=== PATIENT | male | born 1990 | race Caucasian/White ===

== ENCOUNTER 2019-02-12 10:12 | Emergency (ER) | payer OTHER ==
--- NOTE | 2019-02-12 11:05 | XRAY Report ---
Reason: cough/ Soa Procedure Date: 02/12/2019 Accession Number: [id number] / [id number] Procedure: XR - Chest 2 View X-Ray CPT Code: 61988 FULL RESULT: EXAM: CHEST RADIOGRAPHY EXAM DATE: 02/12/2019 10:42 AM. CLINICAL HISTORY: Cough/ Soa. COMPARISON: None. TECHNIQUE: 2 views. FINDINGS: Lungs/Pleura: No focal opacities evident. No pleural effusion. No pneumothorax. Normal volumes. Mediastinum: Heart and mediastinal contours are unremarkable. Other: None. IMPRESSION: Negative 2-view chest radiography. [facility]IA
[2019-02-12] MEDS ORDERED: ALBUTEROL NEB 2.5 MG/3 ML INH STA (11:22)
--- NOTE | 2019-02-12 11:46 | ED Physician Documentation ---
History of Present Illness - Stated complaint Stated Complaint: COUGH - Chief complaint Chief Complaint: Resp - History obtained from History obtained from: Patient - History of Present Illness Pain level max: 0 Pain level now: 0 - Additonal information Additional information: 28-year-old male works at [employer]. States has had rhinorrhea and congestion for the past several days. Today had a hard time breathing while at work. Currently feeling better. Had coughing today as well. Quit smoking 6 months ago. No fevers. Dry cough. Nothing makes it better or worse Review of Systems Constitutional: denies: Fever, Chills Nose: reports: Rhinorrhea / runny nose, Congestion Throat: denies: Sore throat Cardiac: denies: Chest pain / pressure Respiratory: reports: Cough GI: denies: Abdominal Pain, Nausea, Vomiting, Diarrhea : denies: Dysuria Skin: denies: Rash Musculoskeletal: denies: Neck pain, Back pain Neurologic: denies: Headache PD PAST MEDICAL HISTORY - Past Medical History Past Medical History: No Cardiovascular: None Respiratory: None Neuro: None Endocrine/Autoimmune: None GI: None : None HEENT: None Psych: None Musculoskeletal: None Derm: None - Past Surgical History Past Surgical History: No - Present Medications Home Medications: Ambulatory Orders Medication Instructions Recorded Confirmed Albuterol Sulf [Ventolin Hfa 1 - 2 puffs INH Q4HR PRN #1 inhaler 02/12/19 Inhaler] - Allergies Allergies/Adverse Reactions: Allergies Allergy/AdvReac Type Severity Reaction Status Date / Time No Known Drug Allergies Allergy Verified 02/12/19 10:23 - Social History Does the pt smoke?: No Smoking Status: Former smoker - Immunizations Immunizations are current?: Yes PD ED PE NORMAL - Vitals Vital signs reviewed: Yes - General General: Alert and oriented X 3, No acute distress - HEENT HEENT: Ears normal, Moist mucous membranes, Pharynx benign - Neck Neck: Supple, no meningeal sign, No adenopathy - Cardiac Cardiac: RRR, Strong equal pulses - Respiratory Respiratory: No respiratory distress, Other (End expiratory wheeze bilaterally diminished breath sounds bilaterally) - Derm Derm: Warm and dry - Neuro Neuro: Alert and oriented X 3 - Psych Psych: Normal mood, Normal affect Results - Vitals Vitals: Oxygen O2 Source Room air - Rads (name of study) Chest x-ray Radiology: Prelim report reviewed, EMP read contemporaneously, See rad report (No acute disease) PD MEDICAL DECISION MAKING - ED course Complexity details: re-evaluated patient, considered differential, d/w patient ED course: Patient with what appears to be a viral upper respiratory infection. Symptoms resolved in the emergency department. Will prescribe an inhaler for home. Also may have had a component of anxiety today. Patient is well-appearing, nontoxic. Afebrile. No hypoxia. No respiratory distress. Patient counseled regarding signs and symptoms for which I believe and urgent re-evaluation would be necessary. Patient with good understanding of and agreement to plan and is comfortable going home at this time This document was made in part using voice recognition software. While efforts are made to proofread this document, sound alike and grammatical errors may occur. Departure - Departure Disposition: 01 Home, Self Care Clinical Impression: Viral URI, Anxiety reaction Condition: Good Instructions: ED Panic Attack, ED URI Viral Follow-Up: your,doctor in 1 week [Other] Prescriptions: Albuterol Sulf [Ventolin Hfa Inhaler] 1 - 2 puffs INH Q4HR PRN #1 inhaler PRN Reason: Shortness Of Air/Wheezing Comments: Use the inhaler as needed for difficulty breathing. Make sure to use it with a spacer as this increases the amount of medication that makes it to your lungs. Return if you worsen. Discharge Date/Time: 02/12/19 13:10
[2019-02-12 13:19] VITALS: BP 130/82
== END 2019-02-12 13:10 | disposition home or self-care (01) ==
LOC: ED 10:12
DX: J06.9 Acute upper respiratory infection, unspecified (principal); F41.1 Generalized anxiety disorder; Z87.891 Personal history of nicotine dependence
CPT/HCPCS: 71046; 94640; 94664; 99283; 99284

== ENCOUNTER 2020-02-14 17:13 | Emergency (ER) | payer OTHER ==
[2020-02-14 17:19] VITALS: BP 144/110
[2020-02-14] MEDS ORDERED: oxyCODONE/ACET 5/325 Prepack 4 PO STA (17:23)
[2020-02-14] MEDS ORDERED: TETANUS/DIPHTHERIA/PERTUSSIS 0.5 ML SYRINGE IM ONE (17:23)
[2020-02-14] MEDS ORDERED: oxyCODONE 5 MG TABLET PO STA (17:23)
[2020-02-14] MEDS ORDERED: IBUPROFEN 800 MG TABLET PO STA (17:23)
[2020-02-14] MEDS ORDERED: BACITRACIN ZINC OINT 1 PACKET TOP STA (17:24)
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
[2020-02-14] MEDS ORDERED: LIDOCAINE JELLY 2% 6 ML JEL.PF.APP TOP STA (17:32)
== END 2020-02-14 17:45 | disposition home or self-care (01) ==
LOC: ED 17:13
DX: T23.232A Burn of second degree of multiple left fingers (nail), not including thumb, initial encounter (principal); X13.1XXA Other contact with steam and other hot vapors, initial encounter; Y93.G1 Activity, food preparation and clean up; Y92.000 Kitchen of unspecified non-institutional (private) residence as the place of occurrence of the external cause; Z87.891 Personal history of nicotine dependence
CPT/HCPCS: 90471; 90715; 99283; A9270

== ENCOUNTER 2023-03-28 10:14 | Outpatient (CLI) | payer OTHER ==
[2023-03-28 14:44] LABS: BASOPHILS # (AUTO) 0.1 10^3/uL (0.0-0.1); EOSINOPHILS # (AUTO) 0.1 10^3/uL (0.0-0.7); EOSINOPHILS % (AUTO) 1.2 %; HCT - HEMATOCRIT 47.2 % (42.0-52.0); LYMPHOCYTES # (AUTO) 1.3 10^3/uL (1.5-3.5); LYMPHOCYTES % (AUTO) 26.2 %; MEAN CORPUSCULAR HEMOGLOBIN 27.9 pg (27.0-31.0); MEAN CORPUSCULAR HGB CONC 31.8 g/dL (32.0-36.0); MEAN CORPUSCULAR VOLUME 87.7 fL (80.0-94.0); MEAN PLATELET VOLUME 10.1 fL (7.4-11.4); MONOCYTES # (AUTO) 0.4 10^3/uL (0.0-1.0); MONOCYTES % (AUTO) 7.6 %; NEUTROPHILS # (AUTO) 3.1 10^3/uL (1.5-6.6); NEUTROPHILS % (AUTO) 63.8 %; PLT - PLATELET COUNT 271 10^3/uL (130-450); RED BLOOD COUNT 5.38 10^6/uL (4.70-6.10); RED CELL DISTRIBUTION WIDTH 13.2 % (12.0-15.0); WHITE BLOOD COUNT 4.9 x10^3/uL (4.8-10.8)
[2023-03-28 15:25] LABS: THYROID STIMULATING HORMONE 1.42 uIU/mL (0.34-5.60)
[2023-03-28 15:29] LABS: ALBUMIN 4.7 g/dL (3.2-5.5); ALKALINE PHOSPHATASE 53 IU/L (42-121); ALT ALANINE AMINOTRANSFERASE 13 IU/L (10-60); AST ASPARTATE AMINOTRANSFERASE 12 IU/L (10-42); BILIRUBIN,TOTAL 0.4 mg/dL (0.2-1.0); BUN - BLOOD UREA NITROGEN 13 mg/dL (6-20); CALCIUM 9.9 mg/dL (8.5-10.3); CARBON DIOXIDE - CO2 29 mmol/L (21-32); CHLORIDE 105 mmol/L (101-111); CHOL/HDL RATIO 2.4 (<5.0); CHOLESTEROL 189 mg/dL; CREATININE 0.8 mg/dL (0.6-1.3); GFR - MDRD 111 (>89); GLUCOSE 96 mg/dL (74-104); HDL CHOLESTEROL 80 mg/dL; LDL CHOLESTEROL,CALCULATED 99 mg/dL; LDL/HDL RATIO 1.2 (<3.6); POTASSIUM 4.3 mmol/L (3.5-4.5); SODIUM 139 mmol/L (135-145); TOTAL PROTEIN 7.1 g/dL (6.4-8.9); TRIGLYCERIDES 49 mg/dL (48-352); VLDL CHOLESTEROL 10 mg/dL
== END 2023-03-28 10:15 | disposition home or self-care (01) ==
LOC: LAB.S 10:14
PROVIDERS: ATTEND Nurse Practitioner
DX: F32.A Depression, unspecified (principal)
CPT/HCPCS: 36415; 80053; 80061; 83721; 84443; 85025

== ENCOUNTER 2023-08-28 12:44 | Outpatient (CLI) | payer OTHER ==
--- NOTE | 2023-08-28 13:24 | XRAY Report ---
PROCEDURE: Knee 3V LT INDICATIONS: LEFT KNEE PAIN TECHNIQUE: 3 views of the knee(s) were acquired. COMPARISON: 11/06/2011 FINDINGS: Bones: No fractures or dislocations. No suspicious bony lesions. Tricompartmental joint space narro wing with associated osteophytosis. Soft tissues: Moderate knee joint effusion. No suspicious soft tissue calcifications or masses. IMPRESSION: No acute bony abnormality. Moderate knee joint effusion. Internal derangement not excluded. Mild to moderate tricompartmental osteoarthritis. Kellgren-Antonino scale of osteoarthritis: 2. Reviewed by: Raymundo Mason MD on 08/28/2023 1:23 PM PDT Approved by: Raymundo Mason MD on 08/28/2023 1:23 PM PDT Station ID: [id number]
--- NOTE | 2023-08-28 19:50 | XRAY Report ---
PROCEDURE: Lumbar Spine 2-3V INDICATIONS: CHRONIC LUMBAR BACK PAIN TECHNIQUE: 3 view(s) of the lumbar spine were acquired. COMPARISON: None. FINDINGS: Bones: Vertebral body height and alignment is maintained. No suspicious bony lesions. Soft tissues: Overlying bowel gas pattern is normal. No suspicious soft tissue calcifications. Lar ge amount of fecal debris IMPRESSION: Unremarkable lumbar spine radiographs. Incidental large amount of fecal debris Reviewed by: Dick Mercado MD on 08/28/2023 6:49 PM AKDT Approved by: Dick Mercado MD on 08/28/2023 6:49 PM AKDT Station ID: [id number]
== END 2023-08-28 12:45 | disposition home or self-care (01) ==
LOC: DI.S 12:44
PROVIDERS: ATTEND Physician Assistant Medical
DX: M54.50 Low back pain, unspecified (principal); G89.29 Other chronic pain; M25.462 Effusion, left knee; M17.12 Unilateral primary osteoarthritis, left knee

== ENCOUNTER 2023-09-14 07:16 | Outpatient (CLI) | payer OTHER ==
--- NOTE | 2023-09-17 18:11 | MRI Report ---
PROCEDURE: Knee LT WO INDICATIONS: L KNEE JOINT TECHNIQUE: Noncontrast sagittal PD fast spin echo and T2 fast spin echo with fat saturation, sagittal 3-D gradie nt sequence with fat saturation; coronal T1 spin echo and PD fast spin echo with fat saturation, and axial PD fast spin echo with fat saturation through the knee. COMPARISON: X-ray left knee, 08/28/2023. MRI left knee report, 11/22/2011; images are not available. FINDINGS: Image quality: Excellent. Menisci: The medial and lateral menisci demonstrate normal morphology and internal signal. The meni scal root ligaments appear intact. Cruciate ligaments: The anterior and posterior cruciate ligaments appear intact. Medial structures: The medial collateral ligament appears intact. The semimembranosus tendon insert ions and meniscocapsular junction appear intact. Visualized portions of the pes anserinus tendons ap pear normal. No abnormal bursal fluid. Lateral structures: The lateral collateral ligament, long and short heads of the biceps femoris tend on appear intact. The popliteus tendon appears normal. Iliotibial band appears normal. Anterior structures: The quadriceps and patellar tendons appear intact. Patellar alignment is frank l. No femoral trochlear dysplasia or ventral trochlear prominence. There is mild edema in the infrap atellar fat pad. Bones and cartilage: There is a. osteochondral lesion in the medial femoral condyle measuring 1.8 x 1.5 x 0.7 cm. This was reported on the last MRI report dated 11/22/2011. No acute fractures. There is p rominent articular cartilage thinning and fibrillation in the medial femorotibial compartment. Joint space: There is small knee joint effusion. No Barton's cyst. Normal appearing synovial plicae are incidentally noted. IMPRESSION: 1. Chronic osteochondral injury with a 1.8 x 1.5 x 0.7 cm nondisplaced osteochondral fragment in the medial femoral condyle. This was previously present on 11/22/2011. The prior MRI images are, however, n ot available for comparison. 2. Prominent articular cartilage loss and degeneration in the medial femorotibial compartment. 3. Edema in the infrapatellar fat pad suggesting infrapatellar fat-pad impingement. 4. Small knee joint effusion. Reviewed by: Pb Clement MD on 09/17/2023 6:10 PM PDT Approved by: Pb Clement MD on 09/17/2023 6:10 PM PDT Station ID: [id number]
== END 2023-09-14 07:17 | disposition home or self-care (01) ==
LOC: DI 07:16
PROVIDERS: ATTEND Physician Assistant Medical
DX: M89.9 Disorder of bone, unspecified (principal); M23.8X2 Other internal derangements of left knee; M25.462 Effusion, left knee